=== PATIENT | female | born 1960 | race Caucasian/White ===

== ENCOUNTER 2023-09-06 11:52 | Emergency (ER) | payer BC ==
[2023-09-06] MEDS: Sodium Chloride 0.9% 1,000 ML IV STA (12:22)
[2023-09-06 12:23] LABS: BASOPHILS ABSOLUTE AUTO 0.02 K/uL (0.00-0.20); BASOPHILS PERCENT AUTO 0.2 % (0.0-1.0); HEMATOCRIT 44.5 % (37.0-47.0); HEMOGLOBIN 15.4 g/dL (12.0-16.0); IMMATURE GRAN ABSOLUTE AUTO 0.04 K/uL (0.00-0.05); IMMATURE GRAN PERCENT AUTO 0.3 % (0.0-0.4); LYMPHOCYTES ABSOLUTE AUTO 0.72 K/uL (1.00-4.80); LYMPHOCYTES PERCENT AUTO 5.5 % (24.0-44.0); MEAN CORPUSCULAR HEMOGLOBIN 32.3 pg (28.0-32.0); MEAN CORPUSCULAR HGB CONC 34.6 g/dL (32.0-36.0); MEAN CORPUSCULAR VOLUME 93.3 fL (83.0-99.0); MEAN PLATELET VOLUME 10.9 fL (9.4-12.3); MONOCYTES ABSOLUTE AUTO 0.45 K/uL (0.00-0.80); MONOCYTES PERCENT AUTO 3.4 % (0.0-8.0); NEUTROPHILS ABSOLUTE AUTO 11.84 K/uL (1.80-7.70); NEUTROPHILS PERCENT AUTO 90.6 % (41.0-71.0); PLATELET COUNT,PLT 310 K/uL (150-400); RED BLOOD CELL COUNT 4.77 M/uL (4.10-5.30); WHITE BLOOD CELL COUNT,WBC 13.07 K/uL (3.9-11.3)
[2023-09-06] MEDS: hydrALAZINE 20 MG/ML SDV IVPUSH STA ×2 (12:23→13:58)
[2023-09-06] MEDS: Ondansetron 4 MG/2 ML SDV IVPUSH STA (12:23)
[2023-09-06 12:37] LABS: INR 1.1 (0.86-1.11); PTT,PARTIAL THROMBOPLSTIN TIME 24.8 SEC (23.9-30.7)
[2023-09-06 12:50] LABS: A/G RATIO 0.9 (0.9-1.6); ALBUMIN 4.2 g/dL (3.4-5.0); BILIRUBIN TOTAL 0.9 mg/dL (0.2-1.0); CALCIUM 10.2 mg/dL (8.5-10.1); CARBON DIOXIDE,CO2 21.1 mmol/L (21.0-32.0); CREATININE 1.1 mg/dL (0.6-1.0); EST CRCL DRUG DOSING (CG) 47.72 mL/min; MAGNESIUM 1.7 mg/dL (1.8-2.4); POTASSIUM,K 3.4 mmol/L (3.5-5.1); PROTEIN TOTAL,TP 9.1 g/dL (6.4-8.2)
[2023-09-06] MEDS: Aspirin 81 MG Tab.Chew PO STA (13:16)
[2023-09-06] MEDS: Heparin Sodium 5,000 Units/ML Vial IVPUSH STA (13:38)
[2023-09-06] MEDS: Magnesium Sulfate/Water 2 GM in Premix Bag 1 BAG IV STA (13:38)
[2023-09-06] MEDS: Heparin Sodium/0.45% NaCl 500 ML IV STA (13:38)
[2023-09-06 13:45] VITALS: BP 180/78; PULSE 74
[2023-09-06] MEDS: Labetalol 100 MG/20 ML MDV IVPUSH STA (14:24)
== END 2023-09-06 15:04 ==
LOC: MW.ED 11:52
DX: I21.4 Non-ST elevation (NSTEMI) myocardial infarction (principal); R11.2 Nausea with vomiting, unspecified; Z75.8 Other problems related to medical facilities and other health care; Z79.899 Other long term (current) drug therapy
CPT/HCPCS: 36415; 71046; 80053; 83690; 83735; 84484; 85025; 85610; 85730; 93005; 96361; 96365; 96368; 96375; 96376; 99285; A9270; J0360; J1644; J1921; J2405; J3475; J7030; 93010